=== PATIENT | female | born 1990 | race Caucasian/White ===

== ENCOUNTER 2017-03-16 18:58 | Emergency (ER) | payer BC, OTHER ==
[2017-03-16] MEDS ORDERED: Ketorolac 10 MG Tab PO ONE (18:59)
[2017-03-16] MEDS ORDERED: Ondansetron 4 MG Tab.DIS PO ONE (18:59)
[2017-03-16 19:25] VITALS: BP 142/86
[2017-03-16 19:56] LABS: CHLORIDE,CL 105 mmol/L (101-111); SODIUM,NA 141 mmol/L (135-145)
[2017-03-16] MEDS ORDERED: Iopamidol 612 MG/ML 75 ML Bottle IVPUSH ONE (20:07)
[2017-03-16] MEDS ORDERED: Iopamidol 612 MG/ML 100 ML Bottle IVPUSH ONE (20:07)
[2017-03-16] MEDS ORDERED: HYDROmorphone 1 MG/ML Syringe IVPUSH ONE ×2 (20:09→22:12)
[2017-03-16] MEDS ORDERED: Ondansetron 4 MG/2 ML SDV IV ONE (20:09)
[2017-03-16] MEDS ORDERED: Sodium Chloride 0.9% 1,000 ML IV ONE (20:09)
--- NOTE | 2017-03-16 20:16 | EDM.PDOC ---
ED HPI GENERAL MEDICAL PROBLEM - General Chief Complaint: Abdominal Pain Stated Complaint: SEVERE ABD PAIN,NEAUSEA Time Seen by Provider: 03/16/17 20:08 Source of Information: Reports: Patient History Limitations: Reports: No Limitations - History of Present Illness INITIAL COMMENTS - FREE TEXT/NARRATIVE: C/O RLQ abdominal pain, noted pain started 730 this am and has been progressing throughout the day. Nauseated, appetite poor. Denies fever. Hx tubal. Prior GB surgery. Notes hx numerous pelvic infections in past. LMP one week ago. Onset: Today, Gradual Duration: Getting Worse Location: Reports: Abdomen Quality: Reports: Sharp, Stabbing Severity: Moderate Worsens with: Reports: Movement Associated Symptoms: Reports: Nausea/Vomiting Right Lower Abdomen Pain Score (Numeric/FACES): 6 - Related Data Allergies Allergy/AdvReac Type Severity Reaction Status Date / Time amoxicillin [Amoxicillin] Allergy Difficulty Verified 03/16/17 19:05 Breathing Home Meds: Home Meds Acetaminophen [Tylenol] 650 mg PO Q6H PRN #0 tablet 06/12/16 [Rx] Past Medical History HEENT History: Reports: None Cardiovascular History: Reports: High Cholesterol Respiratory History: Reports: None Gastrointestinal History: Reports: Cholelithiasis Genitourinary History: Reports: UTI, Recurrent 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 Neurological History: Reports: Migraines Psychiatric History: Reports: None Endocrine/Metabolic History: Reports: None Hematologic History: Reports: Blood Transfusion(s) Immunologic History: Reports: None Oncologic (Cancer) History: Reports: None Dermatologic History: Reports: None - Infectious Disease History Infectious Disease History: Reports: Chicken Pox - Past Surgical History Head Surgeries/Procedures: Reports: None HEENT Surgical History: Reports: Adenoidectomy, Tonsillectomy Respiratory Surgical History: Reports: None GI Surgical History: Reports: Cholecystectomy Neurological Surgical History: Reports: None Musculoskeletal Surgical History: Reports: Shoulder Surgery Social & Family History - Family History Family Medical History: Noncontributory - Tobacco Use Smoking Status *Q: Unknown Ever Smoked Second Hand Smoke Exposure: No - Caffeine Use Caffeine Use: Reports: Coffee, Soda - Alcohol Use Days Per Week of Alcohol Use: 0 - Recreational Drug Use Recreational Drug Use: No - Sexual History Sexual History: Reports: Sexually Active - Living Situation & Occupation Living situation: Reports: , with Family Occupation: Employed ED ROS GENERAL - Review of Systems Review Of Systems: See Below Constitutional: Reports: Decreased Appetite HEENT: Reports: No Symptoms Respiratory: Reports: No Symptoms Cardiovascular: Reports: No Symptoms GI/Abdominal: Reports: Abdominal Pain, Decreased Appetite, Nausea. Denies: Constipation, Diarrhea : Denies: Discharge, Dysuria, Flank Pain, Frequency, Irregular Menses Musculoskeletal: Reports: No Symptoms Skin: Reports: No Symptoms Neurological: Reports: No Symptoms ED EXAM, GI/ABD - Physical Exam Exam: See Below Exam Limited By: No Limitations General Appearance: Alert, Moderate Distress Eyes: Bilateral: EOMI Ears: Normal External Exam Nose: Normal Inspection Throat/Mouth: Normal Inspection Head: Atraumatic, Normocephalic Neck: Normal Inspection. No: Lymphadenopathy (L), Lymphadenopathy (R) Respiratory/Chest: No Respiratory Distress, Lungs Clear, Normal Breath Sounds Cardiovascular: Normal Peripheral Pulses, Regular Rate, Rhythm GI/Abdominal Exam: Guarding, Rebound, Tender (RLQ), Abnormal Bowel Sounds ( hypoactive). No: Distended (Female) Exam: Normal External Exam, Normal Speculum Exam, Adnexal Tenderness , Cervix Motion Tenderness, Vaginal Discharge (scant milky light green). No: Cervical Lesions Extremities: Normal Inspection, Normal Range of Motion Neurological: Alert, Oriented Psychiatric: Normal Affect Skin Exam: Warm, Dry, Intact, No Rash, Diaphoretic, Pallor Course - Vital Signs Last Recorded V/S: Last Vital Signs Temp 98.2 F 03/16/17 19:23 Pulse 82 03/16/17 19:23 Resp 20 03/16/17 19:23 BP 142/86 H 03/16/17 19:23 Pulse Ox 100 03/16/17 19:23 - Orders/Labs/Meds Orders: Active Orders 24 hr Category Date Time Status CHLAMYDIA TRACHOMATIS/GC AMPLF Urgent Lab 03/16/17 19:35 Received Labs: Laboratory Tests 03/16/17 03/16/17 03/16/17 Range/Units 19:19 19:19 19:19 WBC 10.1 H (5.0-10.0) 10^3/uL RBC 5.32 (4.2-5.4) 10^6/uL Hgb 14.8 (12.0-16.0) g/dL Hct 44.3 (37.0-47.0) % MCV 83.3 (80-100) fL MCH 27.8 (27.0-34.0) pg MCHC 33.4 (33.0-35.0) g/dL Plt Count 314 (150-450) 10^3/uL Neut % (Auto) 61.1 (42.2-75.2) % Lymph % (Auto) 26.9 (20.5-50.1) % [place] % (Auto) 6.3 (2-8) % Eos % (Auto) 5.4 H (1.0-3.0) % Baso % (Auto) 0.3 (0.0-1.0) % Sodium 141 (135-145) mmol/L Potassium 4.1 (3.6-5.0) mmol/L Chloride 105 (101-111) mmol/L Carbon Dioxide 25.0 (21.0-31.0) mmol/L Anion Gap 15.1 BUN 6 L (7-18) mg/dL Creatinine 0.6 (0.6-1.3) mg/dL Est Cr Clr Drug Dosing 113.36 mL/min Estimated GFR (MDRD) > 60 BUN/Creatinine Ratio 10.00 Glucose 89 (74-105) mg/dL Lactic Acid 0.8 (0.5-2.2) mmol/L Calcium 9.6 (8.4-10.2) mg/dl Total Bilirubin 0.3 (0.2-1.0) mg/dL AST 21 (10-42) IU/L ALT 23 (10-60) IU/L Alkaline Phosphatase 63 (42-121) IU/L Total Protein 8.0 (6.7-8.2) g/dl Albumin 4.7 (3.2-5.5) g/dl Globulin 3.3 Albumin/Globulin Ratio 1.42 Amylase 63 (28-100) U/L Lipase 36 (22-51) U/L Urine Color (YELLOW) Urine Appearance (CLEAR) Urine pH (5.0-9.0) Ur Specific [place] (1.005-1.030) Urine Protein (NEGATIVE) Urine Glucose (UA) (NEGATIVE) Urine Ketones (NEGATIVE) Urine Occult Blood (NEGATIVE) Urine Nitrite (NEGATIVE) Urine Bilirubin (NEGATIVE) Urine Urobilinogen (0.2-1.0) mg/dL Ur Leukocyte Esterase (NEGATIVE) Urine RBC /HPF Urine WBC (0-5/HPF) /HPF Ur Epithelial Cells /HPF Urine Bacteria (0-FEW/HPF) /HPF Urine Mucus /LPF Urine HCG, Qual Urine Opiates Screen (NEGATIVE) Ur Oxycodone Screen (NEGATIVE) Urine Methadone Screen (NEGATIVE) Ur Barbiturates Screen (NEGATIVE) U Tricyclic Antidepress (NEGATIVE) Ur Phencyclidine Scrn (NEGATIVE) Ur Amphetamine Screen (NEGATIVE) U Methamphetamines Scrn (NEGATIVE) Urine MDMA Screen (NEGATIVE) U Benzodiazepines Scrn (NEGATIVE) Urine Cocaine Screen (NEGATIVE) U Marijuana (THC) Screen (NEGATIVE) 03/16/17 03/16/17 03/16/17 Range/Units 19:35 19:35 19:35 WBC (5.0-10.0) 10^3/uL RBC (4.2-5.4) 10^6/uL Hgb (12.0-16.0) g/dL Hct (37.0-47.0) % MCV (80-100) fL MCH (27.0-34.0) pg MCHC (33.0-35.0) g/dL Plt Count (150-450) 10^3/uL Neut % (Auto) (42.2-75.2) % Lymph % (Auto) (20.5-50.1) % [place] % (Auto) (2-8) % Eos % (Auto) (1.0-3.0) % Baso % (Auto) (0.0-1.0) % Sodium (135-145) mmol/L Potassium (3.6-5.0) mmol/L Chloride (101-111) mmol/L Carbon Dioxide (21.0-31.0) mmol/L Anion Gap BUN (7-18) mg/dL Creatinine (0.6-1.3) mg/dL Est Cr Clr Drug Dosing mL/min Estimated GFR (MDRD) BUN/Creatinine Ratio Glucose (74-105) mg/dL Lactic Acid (0.5-2.2) mmol/L Calcium (8.4-10.2) mg/dl Total Bilirubin (0.2-1.0) mg/dL AST (10-42) IU/L ALT (10-60) IU/L Alkaline Phosphatase (42-121) IU/L Total Protein (6.7-8.2) g/dl Albumin (3.2-5.5) g/dl Globulin Albumin/Globulin Ratio Amylase (28-100) U/L Lipase (22-51) U/L Urine Color Yellow (YELLOW) Urine Appearance Slightly cloudy (CLEAR) Urine pH 6.0 (5.0-9.0) Ur Specific [place] 1.015 (1.005-1.030) Urine Protein Negative (NEGATIVE) Urine Glucose (UA) Negative (NEGATIVE) Urine Ketones Negative (NEGATIVE) Urine Occult Blood Negative (NEGATIVE) Urine Nitrite Negative (NEGATIVE) Urine Bilirubin Negative (NEGATIVE) Urine Urobilinogen 0.2 (0.2-1.0) mg/dL Ur Leukocyte Esterase Negative (NEGATIVE) Urine RBC 0-5 /HPF Urine WBC 0-5 (0-5/HPF) /HPF Ur Epithelial Cells Many H /HPF Urine Bacteria Few (0-FEW/HPF) /HPF Urine Mucus Rare /LPF Urine HCG, Qual Negative Urine Opiates Screen Negative (NEGATIVE) Ur Oxycodone Screen Negative (NEGATIVE) Urine Methadone Screen Negative (NEGATIVE) Ur Barbiturates Screen Negative (NEGATIVE) U Tricyclic Antidepress Negative (NEGATIVE) Ur Phencyclidine Scrn Negative (NEGATIVE) Ur Amphetamine Screen Negative (NEGATIVE) U Methamphetamines Scrn Negative (NEGATIVE) Urine MDMA Screen Negative (NEGATIVE) U Benzodiazepines Scrn Negative (NEGATIVE) Urine Cocaine Screen Negative (NEGATIVE) U Marijuana (THC) Screen Negative (NEGATIVE) Meds: Medications Discontinued Medications Generic Name Dose Route Start Last Admin Trade Name Bennyq PRN Reason Stop Dose Admin Doxycycline Hyclate 100 mg 03/16/17 22:49 03/16/17 22:59 Vibramycin PO 03/16/17 22:50 100 mg ONETIME ONE Administration Hydromorphone HCl 1 mg 03/16/17 20:09 03/16/17 20:20 Dilaudid IVPUSH 03/16/17 20:10 1 mg ONETIME ONE Administration Hydromorphone HCl 1 mg 03/16/17 22:12 03/16/17 22:18 Dilaudid IVPUSH 03/16/17 22:13 1 mg ONETIME ONE Administration Sodium Chloride 1,000 mls @ 999 mls/hr 03/16/17 20:09 03/16/17 20:18 Normal Saline IV 03/16/17 21:09 999 mls/hr .BOLUS ONE Administration Ceftriaxone Sodium 1 gm/ 50 mls @ 100 mls/hr 03/16/17 22:48 03/16/17 22:59 Sodium Chloride IV 03/16/17 23:17 100 mls/hr ONETIME ONE Administration Iopamidol 100 ml 03/16/17 20:07 03/16/17 22:18 Isovue-300 (61%) IVPUSH 03/16/17 20:08 Not Given ONETIME ONE Iopamidol 75 ml 03/16/17 20:07 03/16/17 20:38 Isovue-300 (61%) IVPUSH 03/16/17 20:08 75 ml ONETIME ONE Administration Ketorolac Tromethamine 30 mg 03/16/17 22:44 03/16/17 22:59 Toradol IVPUSH 03/16/17 22:45 30 mg ONETIME ONE Administration Ketorolac Tromethamine Confirm 03/17/17 00:07 03/17/17 00:15 Toradol Administered 03/17/17 00:08 Not Given Dose 20 mg .ROUTE .STK-MED ONE Ondansetron HCl 4 mg 03/16/17 20:09 03/16/17 20:19 Zofran IV 03/16/17 20:10 4 mg ONETIME ONE Administration Ondansetron HCl Confirm 03/17/17 00:06 03/17/17 00:16 Zofran Odt Administered 03/17/17 00:07 Not Given Dose 12 mg .ROUTE .STK-MED ONE - Radiology Interpretation Free Text/Narrative:: Normal abdominal CT. Normal appendix, small amount fluid RLQ within normal physiologic parameter. - Re-Assessments/Exams Free Text/Narrative Re-Assessment/Exam: 03/17/17 01:33 mild pain relief with dilaudid. Continued pain RLQ. Toradol given with moderate relief. Resting. Departure - Departure Time of Disposition: 23:56 Disposition: Home, Self-Care 01 Condition: Fair Clinical Impression: Abdominal pain Qualifiers: Abdominal location: right lower quadrant Qualified Code(s): R10.31 - Right lower quadrant pain - Discharge Information Instructions: Abdominal Pain, Adult, [id number] Referrals: Tamia Hassan MD [Primary Care Provider] - Forms: ED Department Discharge Additional Instructions: [id number] ODT one every4 hours as needed for pain Doxycycline 100mg one twice daily for one week Toradol 10mg one every 6 hours as needed for pain follow up with Dr. Bland tomorrow rest - My Orders Last 24 Hours: My Active Orders 03/16/17 19:35 CHLAMYDIA TRACHOMATIS/GC AMPLF Urgent - Assessment/Plan Last 24 Hours: My Active Orders 03/16/17 19:35 CHLAMYDIA TRACHOMATIS/GC AMPLF Urgent
[2017-03-16] MEDS ORDERED: Ketorolac 30 MG/ML SDV IVPUSH ONE (22:44)
[2017-03-16] MEDS ORDERED: cefTRIAXone 1 GM in Sodium Chloride 0.9% 50 ML IV ONE (22:48)
[2017-03-16] MEDS ORDERED: Doxycycline 100 MG Cap PO ONE (22:49)
[2017-03-17] MEDS ORDERED: Ondansetron 4 MG Tab.DIS ONE (00:06)
[2017-03-17] MEDS ORDERED: Ketorolac 10 MG Tab ONE (00:07)
== END 2017-03-17 00:15 | disposition home or self-care (01) ==
LOC: DL.ED 18:58
DX: R10.31 Right lower quadrant pain (principal); E78.00 Pure hypercholesterolemia, unspecified; G43.909 Migraine, unspecified, not intractable, without status migrainosus; Z90.49 Acquired absence of other specified parts of digestive tract; Z98.890 Other specified postprocedural states; Z88.1 Allergy status to other antibiotic agents; Z87.440 Personal history of urinary (tract) infections
CPT/HCPCS: 36415; 74177; 80053; 80305; 81001; 81025; 82150; 83605; 83690; 85025; 87210; 87491; 87591; 96361; 96365; 96375; 96376; 99284; A9270; J0696; J1170; J1885; J2405; J7030; J7050; Q9967

== ENCOUNTER 2017-03-27 11:01 | Emergency (ER) | payer BC, SELFPAY ==
[2017-03-27 11:15] VITALS: BP 148/94
[2017-03-27] MEDS ORDERED: Sodium Chloride 0.9% 10 ML Syringe FLUSH PRN (11:40)
--- NOTE | 2017-03-27 11:47 | EDM.PDOC ---
ED HPI GENERAL MEDICAL PROBLEM - General Chief Complaint: Chest Pain Stated Complaint: CHEST/ARM/SHOULDER PAIN [phone] Time Seen by Provider: 03/27/17 11:47 Source of Information: Reports: Patient History Limitations: Reports: No Limitations - History of Present Illness INITIAL COMMENTS - FREE TEXT/NARRATIVE: Patient presents to the ER with c/o chest tightness, tightness between the shoulder blades, and tingling at times down the left arm. Patient states she is not SOB, or have pain, it is just a "tightness". She states this woke her up from sleep this morning about 7am. She states she has had symptoms like this about 2 years ago, was worked up, and had a stress test, all being negative. She denies any health problem. Denies control use, denies smoking. Onset: Today Onset Date: 03/27/17 Onset Time: 07:30 Location: Reports: Chest Quality: Reports: Other (tightness) Severity: Mild Improves with: Reports: None Worsens with: Reports: None Associated Symptoms: Reports: No Other Symptoms - Related Data Allergies Allergy/AdvReac Type Severity Reaction Status Date / Time amoxicillin [Amoxicillin] Allergy Difficulty Verified 03/27/17 11:11 Breathing Home Meds: Home Meds Acetaminophen [Tylenol] 650 mg PO Q6H PRN #0 tablet 06/12/16 [Rx] Aspirin 81 mg PO PRN 03/27/17 [History] Past Medical History HEENT History: Reports: None Cardiovascular History: Reports: High Cholesterol Respiratory History: Reports: None Gastrointestinal History: Reports: Cholelithiasis Genitourinary History: Reports: UTI, Recurrent BACON [place] RINDER History: Reports: , Spontaneous , Other (See Below) Other OB/BYN History: post hemmorhage with D&C with blood transfusion Musculoskeletal History: Reports: Fracture Other Musculoskeletal History: right leg fractured in two places. Neurological History: Reports: Migraines Psychiatric History: Reports: None Endocrine/Metabolic History: Reports: None Hematologic History: Reports: Blood Transfusion(s) Immunologic History: Reports: None Oncologic (Cancer) History: Reports: None Dermatologic History: Reports: None - Infectious Disease History Infectious Disease History: Reports: Chicken Pox - Past Surgical History Head Surgeries/Procedures: Reports: None HEENT Surgical History: Reports: Adenoidectomy, Tonsillectomy Respiratory Surgical History: Reports: None GI Surgical History: Reports: Cholecystectomy Neurological Surgical History: Reports: None Musculoskeletal Surgical History: Reports: Shoulder Surgery Social & Family History - Family History Family Medical History: Noncontributory - Tobacco Use Smoking Status *Q: Former Smoker Used Tobacco, but Quit: Yes Month Tobacco Last Used: ? Second Hand Smoke Exposure: No - Caffeine Use Caffeine Use: Reports: Coffee, Energy Drinks, Soda, Tea - Alcohol Use Days Per Week of Alcohol Use: 0 - Recreational Drug Use Recreational Drug Use: No - Sexual History Sexual History: Reports: Sexually Active - Living Situation & Occupation Living situation: Reports: , with Family Occupation: Employed ED ROS GENERAL - Review of Systems Review Of Systems: ROS reveals no pertinent complaints other than HPI. ED EXAM, GENERAL - Physical Exam Exam: See Below Exam Limited By: No Limitations General Appearance: Alert, WD/WN, No Apparent Distress Throat/Mouth: Normal Inspection Head: Atraumatic, Normocephalic Neck: Normal Inspection, Supple, Non-Tender, Full Range of Motion Respiratory/Chest: No Respiratory Distress, Lungs Clear, Normal Breath Sounds Cardiovascular: Normal Peripheral Pulses, Regular Rate, Rhythm, No Edema, No Gallop, No JVD, No Murmur, No Rub Peripheral Pulses: 2+: Radial (L), Radial (R) GI/Abdominal: Normal Bowel Sounds, Soft, Non-Tender (Female) Exam: Deferred Rectal (Female) Exam: Deferred Back Exam: Normal Inspection, Full Range of Motion Extremities: Normal Inspection, Normal Range of Motion, Non-Tender, No Pedal Edema, Normal Capillary Refill Neurological: Alert, Oriented, CN II-XII Intact, Normal Cognition, Normal Gait Psychiatric: Normal Affect, Normal Mood Skin Exam: Warm, Dry, Intact, Normal Color, No Rash Lymphatic: No Adenopathy EKG INTERPRETATION EKG Date: 03/27/17 Time: 11:41 Rhythm: NSR Rate (Beats/Min): 91 [place]: Normal P-Wave: Present QRS: Normal ST-T: Normal QT: Normal EKG Interpretation Comments: NSR Course - Vital Signs Last Recorded V/S: Last Vital Signs Temp 97.8 F 03/27/17 11:13 Pulse 100 03/27/17 11:13 Resp 18 03/27/17 11:13 BP 148/94 H 03/27/17 11:13 Pulse Ox 100 03/27/17 11:13 - Orders/Labs/Meds Orders: Active Orders 24 hr Category Date Time Status EKG Documentation Completion [RC] STAT Care 03/27/17 11:41 Active Incentive Spirometry [RT Incentive Spirometry] [RC] Care 03/27/17 12:18 Active ASDIRECTED Peripheral IV Care [RC] . DIRECTED Care 03/27/17 11:43 Active Peripheral IV Insertion Adult [OM.PC] Stat Oth 03/27/17 11:40 Ordered Labs: Laboratory Tests 03/27/17 03/27/17 03/27/17 Range/Units 11:50 11:50 11:50 WBC 9.5 (5.0-10.0) 10^3/uL RBC 5.03 (4.2-5.4) 10^6/uL Hgb 14.1 (12.0-16.0) g/dL Hct 41.5 (37.0-47.0) % MCV 82.5 (80-100) fL MCH 28.0 (27.0-34.0) pg MCHC 34.0 (33.0-35.0) g/dL Plt Count 265 (150-450) 10^3/uL Neut % (Auto) 64.1 (42.2-75.2) % Lymph % (Auto) 22.8 (20.5-50.1) % [place] % (Auto) 6.0 (2-8) % Eos % (Auto) 6.7 H (1.0-3.0) % Baso % (Auto) 0.4 (0.0-1.0) % D-Dimer, Quantitative < 100 (0-400) ng/mL Sodium 138 (135-145) mmol/L Potassium 3.7 (3.6-5.0) mmol/L Chloride 103 (101-111) mmol/L Carbon Dioxide 23.0 (21.0-31.0) mmol/L Anion Gap 15.7 BUN 10 (7-18) mg/dL Creatinine 0.8 (0.6-1.3) mg/dL Est Cr Clr Drug Dosing 81.12 mL/min Estimated GFR (MDRD) > 60 BUN/Creatinine Ratio 12.50 Glucose 97 (74-105) mg/dL Calcium 9.7 (8.4-10.2) mg/dl Total Bilirubin 1.0 (0.2-1.0) mg/dL AST 20 (10-42) IU/L ALT 17 (10-60) IU/L Alkaline Phosphatase 57 (42-121) IU/L Troponin I < 0.02 (0.00-0.02) ng/ml Total Protein 7.7 (6.7-8.2) g/dl Albumin 4.4 (3.2-5.5) g/dl Globulin 3.3 Albumin/Globulin Ratio 1.33 Urine HCG, Qual 03/27/17 Range/Units 12:00 WBC (5.0-10.0) 10^3/uL RBC (4.2-5.4) 10^6/uL Hgb (12.0-16.0) g/dL Hct (37.0-47.0) % MCV (80-100) fL MCH (27.0-34.0) pg MCHC (33.0-35.0) g/dL Plt Count (150-450) 10^3/uL Neut % (Auto) (42.2-75.2) % Lymph % (Auto) (20.5-50.1) % [place] % (Auto) (2-8) % Eos % (Auto) (1.0-3.0) % Baso % (Auto) (0.0-1.0) % D-Dimer, Quantitative (0-400) ng/mL Sodium (135-145) mmol/L Potassium (3.6-5.0) mmol/L Chloride (101-111) mmol/L Carbon Dioxide (21.0-31.0) mmol/L Anion Gap BUN (7-18) mg/dL Creatinine (0.6-1.3) mg/dL Est Cr Clr Drug Dosing mL/min Estimated GFR (MDRD) BUN/Creatinine Ratio Glucose (74-105) mg/dL Calcium (8.4-10.2) mg/dl Total Bilirubin (0.2-1.0) mg/dL AST (10-42) IU/L ALT (10-60) IU/L Alkaline Phosphatase (42-121) IU/L Troponin I (0.00-0.02) ng/ml Total Protein (6.7-8.2) g/dl Albumin (3.2-5.5) g/dl Globulin Albumin/Globulin Ratio Urine HCG, Qual Negative Meds: Medications Discontinued Medications Generic Name Dose Route Start Last Admin Trade Name Bette PRN Reason Stop Dose Admin Sodium Chloride 10 ml 03/27/17 11:40 03/27/17 11:56 Saline Flush FLUSH 10 ml ASDIRECTED PRN Administration Keep Vein Open Departure - Departure Time of Disposition: 12:32 Disposition: Home, Self-Care 01 Condition: Good Clinical Impression: Costochondral chest pain - Discharge Information Instructions: Costochondritis, [id number], Nonspecific Chest Pain, Easy-to- Read Forms: ED Department Discharge Additional Instructions: Ibuprofen 800mg orally every 8 hours as needed. Tylenol with Codeine #3 orally every 4-6 hours as needed for pain Use IS as instructed by Respiratory therapy. Deep breathing frequently Follow up in the clinic if no improvement in 3-4 days. - My Orders Last 24 Hours: My Active Orders 03/27/17 11:40 Peripheral IV Insertion Adult [OM.PC] Stat 03/27/17 11:41 EKG Documentation Completion [RC] STAT 03/27/17 11:43 Peripheral IV Care [RC] . DIRECTED 03/27/17 12:18 Incentive Spirometry [RT Incentive Spirometry] [RC] ASDIRECTED - Assessment/Plan Last 24 Hours: My Active Orders 03/27/17 11:40 Peripheral IV Insertion Adult [OM.PC] Stat 03/27/17 11:41 EKG Documentation Completion [RC] STAT 03/27/17 11:43 Peripheral IV Care [RC] . DIRECTED 03/27/17 12:18 Incentive Spirometry [RT Incentive Spirometry] [RC] ASDIRECTED
--- NOTE | 2017-03-27 12:15 | CR ---
Clinical history: 26-year-old female chest pain. Interpretation: Negative exam. Upright AP portable chest film with external cardiac monitor technician leads. Normal cardiac silhouette without cephalization of flow signs of alveolar edema or dependent effusion . No lung mass, hilar lymphadenopathy or focal lobar pneumonia. No atelectasis/collapse. No pneumothora x. CONCLUSION: No acute cardiopulmonary abnormality.
[2017-03-27 12:16] LABS: CHLORIDE,CL 103 mmol/L (101-111); SODIUM,NA 138 mmol/L (135-145)
--- NOTE | 2017-03-29 13:10 | EKG ---
03/27/2017 - JOSE VIGIL - A 12-lead EKG shows normal sinus rhythm without any significant ST elevation or ST depression on this 12-lead EKG. Nonspecific ST-T wave changes noted. [facility] /[id number]
== END 2017-03-27 12:50 | disposition home or self-care (01) ==
LOC: DL.ED 11:01
DX: R07.1 Chest pain on breathing (principal); E78.00 Pure hypercholesterolemia, unspecified; G43.909 Migraine, unspecified, not intractable, without status migrainosus; Z87.891 Personal history of nicotine dependence; Z87.440 Personal history of urinary (tract) infections; Z88.1 Allergy status to other antibiotic agents
CPT/HCPCS: 36415; 71010; 80053; 81025; 84484; 85025; 85379; 93005; 94010; 99285; J7050

== ENCOUNTER 2022-10-19 16:02 | Emergency (ER) | payer BC, OTHER, SELFPAY ==
[2022-10-19 16:29] VITALS: BP 139/96; PULSE 105
[2022-10-19 17:28] LABS: ANION GAP 15.1 mEq/L (7-13); CHLORIDE,CL 104 mmol/L (98-107); ESTIMATED GFR 95 mL/min (>=60); SODIUM,NA 141 mmol/L (136-145)
== END 2022-10-19 18:13 | disposition home or self-care (01) ==
LOC: DL.ED 16:02
DX: R07.9 Chest pain, unspecified (principal); F41.0 Panic disorder [episodic paroxysmal anxiety]; F43.9 Reaction to severe stress, unspecified; Z88.0 Allergy status to penicillin; Z88.1 Allergy status to other antibiotic agents; Z79.82 Long term (current) use of aspirin
CPT/HCPCS: 36415; 71045; 80053; 82150; 83690; 84484; 84703; 85025; 93005; 93010; 99284; 99285